=== PATIENT | female | born 1950 | race Caucasian/White ===

== ENCOUNTER 2024-07-02 03:37 | Emergency (ER) | payer MEDICARE ==
[2024-07-02 03:46] VITALS: TEMP 97
--- NOTE | 2024-07-02 03:49 | ED ---
SOB HPI <Esa Nicole - Last Filed: 07/02/24 09:20> - General Source: EMS, RN notes reviewed, old records reviewed Mode of arrival: EMS Limitations: altered mental status, physical limitation - History of Present Illness MD Complaint: shortness of breath, anxiety -: hour(s) Severity: severe Severity scale (1-10): 10 Consistency: constant Improves With: nothing Worsens With: nothing Associated Symptoms: denies other symptoms Treatments Prior to Arrival: none <Armond Nicholas - Last Filed: 07/09/24 21:56> - General Chief Complaint: Shortness of Breath Stated Complaint: stemi - History of Present Illness Initial Comments: This is a 74-year-old female unable to communicate coming in for altered mental status which started with shortness of breath patient is in straight a DNR (Armond Nicholas) - Related Data Allergies Allergy/AdvReac Type Severity Reaction Status Date / Time Unable to Assess Allergy Verified 07/02/24 03:49 Review of Systems ROS Other: All systems not noted in ROS Statement are negative. <Esa Nicole - Last Filed: 07/02/24 09:20> ROS Other: All systems not noted in ROS Statement are negative. <Armond Nicholas - Last Filed: 07/09/24 21:56> ROS Statement: Those systems with pertinent positive or pertinent negative responses have been documented in the HPI. Past Medical History Past Medical History: Cancer Additional Past Medical History / Comment(s): Unable to obtain complete hx Additional Past Surgical History / Comment(s): unable to obtain <Armond Nicholas - Last Filed: 07/09/24 21:56> General Exam General appearance: alert, in no apparent distress Head exam: Present: atraumatic, normocephalic, normal inspection Eye exam: Present: normal appearance, PERRL, EOMI. Absent: scleral icterus, conjunctival injection, periorbital swelling ENT exam: Present: normal exam, mucous membranes moist Neck exam: Present: normal inspection. Absent: tenderness, meningismus, lymphad enopathy Respiratory exam: Present: normal lung sounds bilaterally. Absent: respiratory distress, wheezes, rales, rhonchi, stridor Cardiovascular Exam: Present: regular rate, normal rhythm, normal heart sounds. Absent: systolic murmur, diastolic murmur, rubs, gallop, clicks GI/Abdominal exam: Present: soft, normal bowel sounds. Absent: distended, tenderness, guarding, rebound, rigid Extremities exam: Present: normal inspection, full ROM, normal capillary refill. Absent: tenderness, pedal edema, joint swelling, calf tenderness Back exam: Present: normal inspection Neurological exam: Present: alert, oriented X3, CN II-XII intact Psychiatric exam: Present: normal affect, normal mood Skin exam: Present: warm, dry, intact, normal color. Absent: rash <Armond Nicholas - Last Filed: 07/09/24 21:56> Course <Armond Nicholas - Last Filed: 07/09/24 21:56> Vital Signs 07/02/24 07/02/24 07/02/24 03:41 03:51 04:00 Temperature 97.0 F L Pulse Rate 57 L 54 L Respiratory 20 16 Rate Blood Pressure 93/45 107/93 O2 Sat by Pulse 73 L 99 Oximetry Fraction of 100 Inspired Oxygen (FIO2) 07/02/24 07/02/24 07/02/24 04:18 04:30 04:45 Temperature Pulse Rate 52 L 56 L 57 L Respiratory 20 18 20 Rate Blood Pressure 65/51 73/56 75/62 O2 Sat by Pulse 100 95 99 Oximetry Fraction of Inspired Oxygen (FIO2) 07/02/24 07/02/24 05:00 05:50 Temperature Pulse Rate 56 L 61 Respiratory 22 18 Rate Blood Pressure 88/58 109/47 O2 Sat by Pulse 99 73 L Oximetry Fraction of Inspired Oxygen (FIO2) - Reevaluation(s) Reevaluation #1: 07/02/24 04:47 Medical record is reviewed (Armond Nicholas) Reevaluation #2: 07/02/24 04:47 Family is at bedside 07/02/24 05:54 Spoke with family at length regarding prognosis they are accepting of patient's active phase of (Armond Nicholas) Reevaluation #3: Patient symptoms unchanged here in the ER (Armond Nicholas) Reevaluation #4: Patient will be transition to hospice care (Armond Nicholas) Reevaluation #5: Differential Dyspnea: Coronary syndrome, arrhythmia, tamponade, asthma, COPD, pulmonary embolism, pneumonia, pneumothorax, pulmonary effusion, anaphylaxis, diabetic ketoacidosis, flailed chest, pulmonary contusion, diaphragmatic rupture, anemia, neuromuscular, this is not meant to be an all-inclusive list. Differential Altered Mental Status: Hypoglycemia, DKA, hypercapnia, ETOH, overdose, CO poisoning, trauma, myxedema coma, HTN encephalopathy, infection, encephalitis, psychosis, intercranial hemorrhage, hepatic encephalopathy, meningitis, CVA, this is not meant to be an all-inclusive list (Armond Nicholas) Medical Decision Making - Lab Data Result diagrams: 07/02/24 03:52 07/02/24 04:22 <Esa Nicole - Last Filed: 07/02/24 09:20> - Lab Data Result diagrams: 07/02/24 03:52 07/02/24 04:22 - EKG Data -: EKG Interpreted by Me (EKG is A-fib 57 QRS 108 QTc 442) <Armond Nicholas - Last Filed: 07/09/24 21:56> - Medical Decision Making Patient signed out to me as pending comfort care and hospice evaluation. Patient is DNR. Briefly, patient has a history of end-stage pancreatic cancer and presented short of breath and multiorgan failure. Previous provider signed out the patient to me pending hospice evaluation with goals of care being comfort. Originally was placed on BiPAP was however removed for comfort. Was hypoxic. Hospice did present and while they were at bedside, patient did pass away. I was notified that the patient stopped breathing. When I presented, patient had absent carotid and radial pulses. No respirations. No heartbeat auscultated. Asystole on the monitor. Time of declared at 0856. ME will be contacted. PCP Dr. Palmer Julien was notified by myself. ME notified. Case number is [id number]. Diagnosis/symptom? @ - secondary to end-stage pancreatic cancer resulting in multiple organ failure, renal failure, liver failure, hypoxic respiratory failure. DNR Acute, or Chronic, or Acute on Chronic? @ -Acute Uncomplicated (without systemic symptoms) or Complicated (systemic symptoms)? @ -Complicated Side effects of treatment? @ -None Exacerbation, Progression, or Severe Exacerbation] @ -No Poses a threat to life or bodily function? @ -Yes, resulted in (Esa Nicole) - Lab Data Lab Results 07/02/24 07/02/24 07/02/24 Range/Units 03:52 04:22 04:22 WBC 28.1 H (3.8-10.6) k/uL RBC 3.53 L (3.80-5.40) m/uL Hgb 9.0 L (11.4-16.0) gm/dL Hct 30.9 L (34.0-46.0) % MCV 87.5 (80.0-100.0) fL MCH 25.5 (25.0-35.0) pg MCHC 29.2 L (31.0-37.0) g/dL RDW 18.9 H (11.5-15.5) % Plt Count 525 H (150-450) k/uL MPV 8.3 Neutrophils % 88 % Lymphocytes % 7 % Monocytes % 2 % Eosinophils % 1 % Basophils % 1 % Neutrophils # 24.7 H (1.3-7.7) k/uL Lymphocytes # 2.0 (1.0-4.8) k/uL Monocytes # 0.6 (0-1.0) k/uL Eosinophils # 0.2 (0-0.7) k/uL Basophils # 0.2 (0-0.2) k/uL Hypochromasia Marked Anisocytosis Slight PT >130.0 H (10.0-12.5) sec INR >10.0 H* (<1.2) APTT 93.5 H (22.0-30.0) sec D-Dimer 3.71 H (<0.60) mg/L FEU Sodium (137-145) mmol/L Potassium (3.5-5.1) mmol/L Chloride (98-107) mmol/L Carbon Dioxide (22-30) mmol/L Anion Gap mmol/L BUN (7-17) mg/dL Creatinine (0.52-1.04) mg/dL Est GFR (CKD-EPI)AfAm (>60 ml/min/1.73 sqM) Est GFR (CKD-EPI)NonAf (>60 ml/min/1.73 sqM) Glucose (74-99) mg/dL Lactic Ac Sepsis Rflx Plasma Lactic Acid Carter 11.7 H* (0.7-2.0) mmol/L Calcium (8.4-10.2) mg/dL Magnesium (1.6-2.3) mg/dL Total Bilirubin (0.2-1.3) mg/dL AST (14-36) U/L ALT (4-34) U/L Alkaline Phosphatase (38-126) U/L Troponin I (0.000-0.034) ng/mL C-Reactive Protein (<1.0) mg/dL NT-Pro-B Natriuret Pep pg/mL Total Protein (6.3-8.2) g/dL Albumin (3.5-5.0) g/dL Procalcitonin (0.02-0.50) ng/mL Influenza Type A (PCR) (Not Detectd) Influenza Type B (PCR) (Not Detectd) RSV (PCR) (Not Detectd) SARS-CoV-2 (PCR) (Not Detectd) 07/02/24 07/02/24 07/02/24 Range/Units 04:22 04:22 04:22 WBC (3.8-10.6) k/uL RBC (3.80-5.40) m/uL Hgb (11.4-16.0) gm/dL Hct (34.0-46.0) % MCV (80.0-100.0) fL MCH (25.0-35.0) pg MCHC (31.0-37.0) g/dL RDW (11.5-15.5) % Plt Count (150-450) k/uL MPV Neutrophils % % Lymphocytes % % Monocytes % % Eosinophils % % Basophils % % Neutrophils # (1.3-7.7) k/uL Lymphocytes # (1.0-4.8) k/uL Monocytes # (0-1.0) k/uL Eosinophils # (0-0.7) k/uL Basophils # (0-0.2) k/uL Hypochromasia Anisocytosis PT (10.0-12.5) sec INR (<1.2) APTT (22.0-30.0) sec D-Dimer (<0.60) mg/L FEU Sodium 119 L* (137-145) mmol/L Potassium 6.9 H* (3.5-5.1) mmol/L Chloride 86 L (98-107) mmol/L Carbon Dioxide 6 L* (22-30) mmol/L Anion Gap 27 mmol/L BUN 72 H (7-17) mg/dL Creatinine 7.67 H* (0.52-1.04) mg/dL Est GFR (CKD-EPI)AfAm 6 (>60 ml/min/1.73 sqM) Est GFR (CKD-EPI)NonAf 5 (>60 ml/min/1.73 sqM) Glucose 100 H (74-99) mg/dL Lactic Ac Sepsis Rflx Plasma Lactic Acid Carter (0.7-2.0) mmol/L Calcium 7.2 L (8.4-10.2) mg/dL Magnesium 2.2 (1.6-2.3) mg/dL Total Bilirubin 2.0 H (0.2-1.3) mg/dL AST 840 H (14-36) U/L ALT 192 H (4-34) U/L Alkaline Phosphatase 467 H (38-126) U/L Troponin I <0.012 (0.000-0.034) ng/mL C-Reactive Protein 7.1 H (<1.0) mg/dL NT-Pro-B Natriuret Pep 3330 pg/mL Total Protein 5.4 L (6.3-8.2) g/dL Albumin 2.7 L (3.5-5.0) g/dL Procalcitonin 5.99 H (0.02-0.50) ng/mL Influenza Type A (PCR) (Not Detectd) Influenza Type B (PCR) (Not Detectd) RSV (PCR) (Not Detectd) SARS-CoV-2 (PCR) (Not Detectd) 07/02/24 07/02/24 Range/Units 05:14 06:51 WBC (3.8-10.6) k/uL RBC (3.80-5.40) m/uL Hgb (11.4-16.0) gm/dL Hct (34.0-46.0) % MCV (80.0-100.0) fL MCH (25.0-35.0) pg MCHC (31.0-37.0) g/dL RDW (11.5-15.5) % Plt Count (150-450) k/uL MPV Neutrophils % % Lymphocytes % % Monocytes % % Eosinophils % % Basophils % % Neutrophils # (1.3-7.7) k/uL Lymphocytes # (1.0-4.8) k/uL Monocytes # (0-1.0) k/uL Eosinophils # (0-0.7) k/uL Basophils # (0-0.2) k/uL Hypochromasia Anisocytosis PT (10.0-12.5) sec INR (<1.2) APTT (22.0-30.0) sec D-Dimer (<0.60) mg/L FEU Sodium (137-145) mmol/L Potassium (3.5-5.1) mmol/L Chloride (98-107) mmol/L Carbon Dioxide (22-30) mmol/L Anion Gap mmol/L BUN (7-17) mg/dL Creatinine (0.52-1.04) mg/dL Est GFR (CKD-EPI)AfAm (>60 ml/min/1.73 sqM) Est GFR (CKD-EPI)NonAf (>60 ml/min/1.73 sqM) Glucose (74-99) mg/dL Lactic Ac Sepsis Rflx Y Plasma Lactic Acid Carter (0.7-2.0) mmol/L Calcium (8.4-10.2) mg/dL Magnesium (1.6-2.3) mg/dL Total Bilirubin (0.2-1.3) mg/dL AST (14-36) U/L ALT (4-34) U/L Alkaline Phosphatase (38-126) U/L Troponin I (0.000-0.034) ng/mL C-Reactive Protein (<1.0) mg/dL NT-Pro-B Natriuret Pep pg/mL Total Protein (6.3-8.2) g/dL Albumin (3.5-5.0) g/dL Procalcitonin (0.02-0.50) ng/mL Influenza Type A (PCR) Not Detected (Not Detectd) Influenza Type B (PCR) Not Detected (Not Detectd) RSV (PCR) Not Detected (Not Detectd) SARS-CoV-2 (PCR) Not Detected (Not Detectd) Critical Care Time Critical Care Time: Yes Total Critical Care Time: 31 <Armond Nicholas - Last Filed: 07/09/24 21:56> Disposition Time of Disposition: 08:56 Preliminary Cause of : multiorgan failure from end stage pancreatic cancer <Esa Nicole - Last Filed: 07/02/24 09:20> Is patient prescribed a controlled substance at d/c from ED?: No <Armond Nicholas - Last Filed: 07/09/24 21:56> Clinical Impression: Multiple organ failure, Renal failure, Liver failure, Hypoxic respiratory failure, Pancreatic cancer, , DNR (do not resuscitate) Disposition: Condition: Critical Referrals: Nonstaff,Physician [Primary Care Provider] - 1-2 days
[2024-07-02 04:02] LABS: Anisocytosis Slight; Basophils # (A) 0.2 k/uL (0-0.2); Basophils % (A) 1 %; Eosinophils # (A) 0.2 k/uL (0-0.7); Eosinophils % (A) 1 %; HCT 30.9 % (34.0-46.0); Hypochromasia Marked; Lymphocytes % (A) 7 %; MCH 25.5 pg (25.0-35.0); MCHC 29.2 g/dL (31.0-37.0); MCV 87.5 fL (80.0-100.0); Mean Platelet Volume 8.3; Monocytes # (A) 0.6 k/uL (0-1.0); Monocytes % (A) 2 %; Neutrophils # (A) 24.7 k/uL (1.3-7.7); Neutrophils % (A) 88 %; Platelet Count 525 k/uL (150-450); RBC 3.53 m/uL (3.80-5.40); RDW 18.9 % (11.5-15.5); WBC 28.1 k/uL (3.8-10.6)
--- NOTE | 2024-07-02 04:05 | XR ---
EXAM: XR Chest, 1 View CLINICAL HISTORY: ITS.REASON XR Reason: sob TECHNIQUE: Frontal view of the chest. COMPARISON: No relevant prior studies available. FINDINGS: Lungs: No consolidation or mass. Pleural space: No acute findings. Heart: No cardiomegaly. Bones/joints: No acute findings. IMPRESSION: No acute cardiopulmonary process.
[2024-07-02] MEDS: SODIUM CHLORIDE 0.9% 1,000 ML IV STA (04:08)
[2024-07-02] MEDS: SODIUM CHLORIDE 0.9% 2,000 ML IV STA (04:09)
[2024-07-02] MEDS: ONDANSETRON 4 MG/2 ML VIAL IVP STA (04:10)
[2024-07-02] MEDS: LORazepam 2 MG/ML INJ IV STA ×2 (04:13→06:45)
[2024-07-02] MEDS: fentaNYL (PF) 50 MCG/ML 2 ML AMP IVP STA (04:55)
[2024-07-02 04:58] LABS: African American GFR (CKD) 6 (>60 ml/min/1.73 sqM); Albumin 2.7 g/dL (3.5-5.0); Alkaline Phosphatase 467 U/L (38-126); Anion Gap 27 mmol/L; Blood Urea Nitrogen 72 mg/dL (7-17); Calcium 7.2 mg/dL (8.4-10.2); Chloride 86 mmol/L (98-107); Glucose 100 mg/dL (74-99); Magnesium 2.2 mg/dL (1.6-2.3); Non-African American GFR(CKD) 5 (>60 ml/min/1.73 sqM); Total Protein 5.4 g/dL (6.3-8.2)
[2024-07-02 05:01] LABS: Prothrombin Time >130.0 sec (10.0-12.5)
[2024-07-02 05:06] LABS: NT-Pro-B-Type Natriuretic Pept 3330 pg/mL
[2024-07-02 05:07] LABS: INR >10.0 (<1.2)
[2024-07-02 05:08] LABS: Partial Thromboplastin Time 93.5 sec (22.0-30.0)
[2024-07-02 05:14] LABS: ALT 192 U/L (4-34)
[2024-07-02 05:16] LABS: Carbon Dioxide 6 mmol/L (22-30); Sodium 119 mmol/L (137-145)
[2024-07-02 05:18] LABS: Potassium 6.9 mmol/L (3.5-5.1)
[2024-07-02 05:19] LABS: AST 840 U/L (14-36)
[2024-07-02 05:30] LABS: C Reactive Protein 7.1 mg/dL (<1.0)
[2024-07-02 07:02] VITALS: BP 109/47; PULSE 61; RESP 18
[2024-07-02] MEDS: MORPHINE SULFATE 4 MG/ML SYRINGE IVP STA (08:30)
== END 2024-07-02 12:59 | disposition expired ==
LOC: EC 03:37
DX: J96.91 Respiratory failure, unspecified with hypoxia (principal); K72.90 Hepatic failure, unspecified without coma; C25.9 Malignant neoplasm of pancreas, unspecified; Z66 Do not resuscitate; F41.9 Anxiety disorder, unspecified
CPT/HCPCS: 36415; 94660; 93005; 85379; 83880; 80053; 83605; 83735; 84484; 85025; 85610; 85730; 86140; 84145; 87636; 71045; 99291; 96374; 96375; 96361; J2060; J2270; J2405; J3010